=== PATIENT | male | born 1970 | race Caucasian/White ===

== ENCOUNTER 2020-02-12 10:17 | Emergency (ER) | payer OTHER ==
--- NOTE | 2020-02-12 10:43 | RADIOLOGY REPORT (SQ) ---
EXAM DESCRIPTION: CHEST SINGLE VIEW IMAGES COMPLETED DATE/TIME: 02/12/2020 10:32 am REASON FOR STUDY: chest pain COMPARISON: 04/24/2015 EXAM PARAMETERS: NUMBER OF VIEWS: One view. TECHNIQUE: Single frontal radiographic view of the chest acquired. RADIATION DOSE: NA LIMITATIONS: None. FINDINGS: LUNGS AND PLEURA: No opacities, masses or pneumothorax. No pleural effusion. MEDIASTINUM AND HILAR STRUCTURES: No masses. Contour normal. HEART AND VASCULAR STRUCTURES: Heart normal in size. Normal vasculature. BONES: No acute findings. HARDWARE: None in the chest. OTHER: No other significant finding. IMPRESSION: NO ACUTE RADIOGRAPHIC FINDING IN THE CHEST. TECHNICAL DOCUMENTATION: JOB ID: [id number] 2010 [employer]- All Rights Reserved Reading location - IP/workstation name: [email or web address]
[2020-02-12 10:45] LABS: ABSOLUTE BASOPHILS # (AUTO) 0.1 10^3/uL (0.0-0.2); ABSOLUTE EOSINOPHILS # (AUTO) 0.1 10^3/uL (0.0-0.6); ABSOLUTE LYMPHOCYTES (AUTO) 2.2 10^3/uL (0.5-4.7); ABSOLUTE MONOCYTES (AUTO) 0.4 10^3/uL (0.1-1.4); ABSOLUTE NEUT (AUTO) 5.1 10^3/uL (1.7-8.2); BASOPHILS % (AUTO) 0.9 % (0-2); EOSINOPHILS % (AUTO) 0.7 % (0-6); HEMOGLOBIN 15.7 g/dL (13.5-17.0); LYMPHOCYTES % (AUTO) 27.9 % (13-45); MEAN CORPUSCULAR HEMOGLOBIN 28.3 pg (27.0-33.4); MEAN CORPUSCULAR HGB CONC 34.9 g/dL (32.0-36.0); MEAN CORPUSCULAR VOLUME 81 fl (80-97); MONOCYTES % (AUTO) 5.4 % (3-13); PLATELET COUNT 232 10^3/uL (150-450); RED BLOOD COUNT 5.54 10^6/uL (4.35-5.55); RED CELL DISTRIBUTION WIDTH 13.5 % (11.5-14.0); SEGMENTED NEUTROPHILS % (AUTO) 65.1 % (42-78); TOTAL CELLS COUNTED % (AUTO) 100 %; WHITE BLOOD COUNT 7.8 10^3/uL (4.0-10.5)
[2020-02-12 11:06] LABS: ALBUMIN 4.5 g/dL (3.5-5.0); ALKALINE PHOSPHATASE 61 U/L (38-126); ANION GAP 9 (5-19); ASPARTATE AMINO TRANSFERASE 27 U/L (17-59); BILIRUBIN,TOTAL 0.7 mg/dL (0.2-1.3); BLOOD UREA NITROGEN 13 mg/dL (7-20); CALCIUM 9.3 mg/dL (8.4-10.2); CARBON DIOXIDE 26 mmol/L (22-30); CHLORIDE 104 mmol/L (98-107); GLUCOSE 85 mg/dL (75-110); POTASSIUM 4.1 mmol/L (3.6-5.0); TOTAL PROTEIN 7.5 g/dL (6.3-8.2)
[2020-02-12 12:39] VITALS: BP 124/83
--- NOTE | 2020-02-12 12:51 | ER Document Report ---
ED Cardiac - General Chief Complaint: Chest Pain Stated Complaint: CHEST PAIN Time Seen by Provider: 02/12/20 10:26 Information source: Patient TRAVEL OUTSIDE OF THE [place] IN LAST 30 DAYS: No - HPI Notes: Patient presents with chest pain. He states it is been substernal. Is been present since yesterday. It is been constant. He does have some shortness of breath with exertion. No significant sweating or nausea. No similar pain in the past. He denies any previous history of coronary artery disease. He is never had any type of coronary artery disease evaluation. He has had no recent cough cold or congestion. No known covert virus exposures. Patient denies any fevers. The pain is been worse with movement and better with rest. He states he does not have any significant pain if he sits still. The pain does radiate across the left side of his chest. It is moderate in intensity and an aching sensation. - Related Data Allergies/Adverse Reactions: No Known Allergies Allergy (Verified 07/08/13 14:40) Past Medical History - General Information source: Patient - Social History Smoking Status: Never Smoker Chew tobacco use (# tins/day): No Frequency of alcohol use: None Drug Abuse: None Family History: Reviewed & Not Pertinent Patient has homicidal ideation: No - Past Medical History Cardiac Medical History: Reports: Hx Hypertension Past Surgical History: Reports: Hx Orthopedic Surgery - bilateral knee surgery - Immunizations Hx Diphtheria, Pertussis, Tetanus Vaccination: Yes Review of Systems - Review of Systems Constitutional: denies: Chills, Fever Cardiovascular: Chest pain. denies: Palpitations Respiratory: Short of breath. denies: Cough -: Yes All other systems reviewed and negative Physical Exam - Vital signs Vitals: Pulse Ox 98 02/12/20 10:17 Interpretation: Normal - General General appearance: Appears well, Alert - HEENT Head: Normocephalic, Atraumatic Eyes: Normal Pupils: PERRL - Respiratory Respiratory status: No respiratory distress Chest status: Nontender Breath sounds: Normal Chest palpation: Normal - Cardiovascular Rhythm: Regular Heart sounds: Normal auscultation Murmur: No - Abdominal Inspection: Normal Distension: No distension Bowel sounds: Normal Tenderness: Nontender Organomegaly: No organomegaly - Back Back: Normal, Nontender - Extremities General upper extremity: Normal inspection, Nontender, Normal color, Normal ROM, Normal temperature General lower extremity: Normal inspection, Nontender, Normal color, Normal ROM, Normal temperature, Normal weight bearing. No: Mark's sign - Neurological Neuro grossly intact: Yes Cognition: Normal Orientation: AAOx4 John Coma Scale Eye Opening: Spontaneous John Coma Scale Verbal: Oriented [place] Coma Scale Motor: Obeys Commands [place] Coma Scale Total: 15 Speech: Normal Motor strength normal: LUE, RUE, LLE, RLE Sensory: Normal - Psychological Associated symptoms: Normal affect, Normal mood - Skin Skin Temperature: Warm Skin Moisture: Dry Skin Color: Normal Course - Vital Signs Vital signs: Temp Pulse Resp BP Pulse Ox 98.6 F 16 124/83 97 02/12/20 10:44 02/12/20 12:01 02/12/20 12:00 02/12/20 12:01 - Laboratory Result Diagrams: 02/12/20 10:19 02/12/20 10:19 - Diagnostic Test Radiology reviewed: Image reviewed, Reports reviewed - EKG Interpretation by Al EKG shows normal: Sinus rhythm Rate: Normal - 68 Rhythm: NSR [place]/QRS: No: Right axis deviation, Left axis deviation Discharge - Discharge Clinical Impression: Chest pain Qualifiers: Chest pain type: unspecified Qualified Code(s): R07.9 - Chest pain, unspecified Condition: Stable Disposition: HOME, SELF-CARE Instructions: Chest Pain of Unclear Cause ([facility]) Additional Instructions: Please call Dr. Nixon as soon as possible to arrange follow-up Forms: Return to Work Referrals: ADEN NIXON MD [ACTIVE STAFF] - Follow up in 3-5 days
--- NOTE | 2020-02-13 14:30 | EKG REPORT ---
SEVERITY:- NORMAL ECG - SINUS RHYTHM : Confirmed by: Miguel Angel Mcdonough MD 13-Feb-2020 14:29:24
== END 2020-02-12 12:00 | disposition home or self-care (01) ==
LOC: ER 10:17
DX: R07.9 Chest pain, unspecified (principal); I10 Essential (primary) hypertension
CPT/HCPCS: 36415; 71045; 80053; 84484; 85025; 93005; 93010; 99285

== ENCOUNTER 2020-05-24 17:57 | Emergency (ER) | payer OTHER ==
--- NOTE | 2020-05-24 18:25 | ER Document Report ---
ED Medical Screen (RME) - General Stated Complaint: ABCESS Time Seen by Provider: 05/24/20 18:17 Mode of Arrival: Ambulatory Information source: Patient Notes: HPI; 49-year-old male presents to the emergency room complaining of right-sided facial swelling for the past 5 days. States that he thought he may have gotten bitten by something. Is having increasing swelling, erythema, and had some drainage today. No history of previous abscesses. Has not taken any medications for symptoms. States tried using ice without relief. PE: Alert and oriented x3. Lungs: Clear to auscultation without rales, rhonchi, wheezes. Heart: Regular rate and rhythm without murmurs, rubs, gallops. He has a 4 x 4 centimeter raised fluctuant abscess to the right side of his face. It is warm and tender to palpation. Mild drainage is noted. I have greeted and performed a rapid initial assessment of this patient. A comprehensive ED assessment and evaluation of the patient, analysis of test results and completion of the medical decision making process will be conducted by additional ED providers. I have specifically instructed the patient or family members with the patient to immediately return to any nursing staff shou ld anything change in the patient's condition or with their chief complaint. TRAVEL OUTSIDE OF THE [place] IN LAST 30 DAYS: No - Related Data Allergies/Adverse Reactions: No Known Allergies Allergy (Verified 07/08/13 14:40) Past Medical History - Past Medical History Cardiac Medical History: Reports: Hx Hypertension Past Surgical History: Reports: Hx Orthopedic Surgery - bilateral knee surgery - Immunizations Hx Diphtheria, Pertussis, Tetanus Vaccination: Yes Physical Exam - Vital signs Vitals: Temp Pulse Resp BP Pulse Ox 98.0 F 56 L 16 139/83 H 97 05/24/20 18:03 05/24/20 18:03 05/24/20 18:03 05/24/20 18:03 05/24/20 18:03 Course - Vital Signs Vital signs: Temp Pulse Resp BP Pulse Ox 98.0 F 56 L 16 139/83 H 97 05/24/20 18:03 05/24/20 18:03 05/24/20 18:03 05/24/20 18:03 05/24/20 18:03
[2020-05-24 18:53] LABS: ABSOLUTE BASOPHILS # (AUTO) 0.1 10^3/uL (0.0-0.2); ABSOLUTE EOSINOPHILS # (AUTO) 0.3 10^3/uL (0.0-0.6); ABSOLUTE MONOCYTES (AUTO) 0.9 10^3/uL (0.1-1.4); ABSOLUTE NEUT (AUTO) 6.7 10^3/uL (1.7-8.2); BASOPHILS % (AUTO) 0.6 % (0-2); EOSINOPHILS % (AUTO) 2.8 % (0-6); HEMATOCRIT 45.8 % (37.9-51.0); HEMOGLOBIN 16.4 g/dL (13.5-17.0); LYMPHOCYTES % (AUTO) 20.3 % (13-45); MEAN CORPUSCULAR HGB CONC 35.7 g/dL (32.0-36.0); MEAN CORPUSCULAR VOLUME 84 fl (80-97); MONOCYTES % (AUTO) 8.7 % (3-13); PLATELET COUNT 213 10^3/uL (150-450); RED BLOOD COUNT 5.46 10^6/uL (4.35-5.55); SEGMENTED NEUTROPHILS % (AUTO) 67.6 % (42-78); TOTAL CELLS COUNTED % (AUTO) 100 %; WHITE BLOOD COUNT 9.9 10^3/uL (4.0-10.5)
[2020-05-24 19:11] LABS: ALBUMIN 4.5 g/dL (3.5-5.0); ALKALINE PHOSPHATASE 66 U/L (38-126); ANION GAP 10 (5-19); ASPARTATE AMINO TRANSFERASE 25 U/L (17-59); BILIRUBIN,DIRECT 0.3 mg/dL (0.0-0.4); BILIRUBIN,TOTAL 0.7 mg/dL (0.2-1.3); BLOOD UREA NITROGEN 8 mg/dL (7-20); CALCIUM 10.1 mg/dL (8.4-10.2); CARBON DIOXIDE 30 mmol/L (22-30); CHLORIDE 100 mmol/L (98-107); GLUCOSE 104 mg/dL (75-110); POTASSIUM 4.7 mmol/L (3.6-5.0); TOTAL PROTEIN 7.8 g/dL (6.3-8.2)
[2020-05-24] MEDS ORDERED: CLINDAMYCIN 600 MG/D5W RTU 600 MG/50 ML RTUPB IV ONE (20:59)
[2020-05-24] MEDS ORDERED: LIDOCAINE 1.5% INJ-MPF (15 MG/ML) 20 ML AMPUL INJ ONE (21:34)
[2020-05-24] MEDS ORDERED: LIDOCAINE 1% INJ (10 MG/ML) 10 ML MDV INJ ONE (21:44)
--- NOTE | 2020-05-24 21:54 | RADIOLOGY REPORT (SQ) ---
CT MAXILLOFACIAL WITH IV CONTRAST HISTORY: Facial pain and swelling. COMPARISON: None. TECHNIQUE: CT scan of the facial bones was performed without IV contrast. This exam was performed according to our departmental dose-optimization program, which includes automated exposure control, adjustment of the mA and/or kV according to patient size and/or use of iterative reconstruction technique. FINDINGS: There is inflammatory stranding overlying the right cheek with a focal rim-enhancing fluid collection in the subcutaneous tissues which measures approximately 3.7 x 2.6 x 1.5 cm. No foreign body is seen in this region. There is an additional 8 mm abscess in the soft tissues adjacent to the right lower jaw. No evidence of osteomyelitis. No acute facial bone fracture is seen. No air-fluid levels are seen in the paranasal sinuses. The mastoid air cells are clear. No retrobulbar mass or hematoma is identified. IMPRESSION: 1. 3.7 cm abscess in the right cheek soft tissues. 2. 8 mm abscess in the right lower jaw soft tissues.
--- NOTE | 2020-05-24 22:45 | ER Document Report ---
Entered by WILMER MCCLOUD SCRIBE 05/24/[id number] Acting as scribe for:RICHARD PERRY DO ED General - General Stated Complaint: ABCESS Time Seen by Provider: 05/24/20 18:17 Mode of Arrival: Ambulatory Information source: Patient Notes: This 49 year old male patient presents to the emergency department today with a abscess to his right cheek for the past x5 days. Patient denies history of absce sses. Patient states the abscess itches and denies pain. Patient reports history of HTN and denies history of DM. 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 TRAVEL OUTSIDE OF THE [place] IN LAST 30 DAYS: No - Related Data Allergies/Adverse Reactions: No Known Allergies Allergy (Verified 07/08/13 14:40) Past Medical History - General Information source: Patient - Social History Smoking Status: Unknown if Ever Smoked Family History: Reviewed & Not Pertinent, Malignancy - Past Medical History Cardiac Medical History: Reports: Hx Hypertension Endocrine Medical History: Denies: Hx Diabetes Mellitus Type 1, Hx Diabetes Mellitus Type 2 Past Surgical History: Reports: Hx Orthopedic Surgery - bilateral knee surgery - Immunizations Hx Diphtheria, Pertussis, Tetanus Vaccination: Yes Review of Systems - Review of Systems Constitutional: No symptoms reported EENT: No symptoms reported Cardiovascular: No symptoms reported Respiratory: No symptoms reported Gastrointestinal: No symptoms reported Genitourinary: No symptoms reported Male Genitourinary: See HPI Musculoskeletal: No symptoms reported Skin: See HPI, Other - Abscess R cheek Hematologic/Lymphatic: No symptoms reported Neurological/Psychological: No symptoms reported -: Yes All other systems reviewed and negative Physical Exam - Vital signs Vitals: Temp Pulse Resp BP Pulse Ox 98.0 F 56 L 16 139/83 H 97 05/24/20 18:03 05/24/20 18:03 05/24/20 18:03 05/24/20 18:03 05/24/20 18:03 - General General appearance: Appears well, Alert - HEENT Head: Normocephalic, Atraumatic Eyes: Normal Pupils: PERRL Notes: Neck: Tenderness with palpation to the right submandibular lymph nodes. Head: Silver dollar sized abscess inferior to the right eye and lateral to the cheek. Moderate soft tissue swelling. Erythema. No streaking. - Respiratory Respiratory status: No respiratory distress Chest status: Nontender Breath sounds: Normal Chest palpation: Normal - Cardiovascular Rhythm: Regular Heart sounds: Normal auscultation Murmur: No - Abdominal Inspection: Other - Soft Distension: No distension Bowel sounds: Normal Tenderness: Nontender Notes: Pustules present on the lower abdomen. - Genitourinary Notes: Soft tissue swelling above the right testicle. - Extremities General upper extremity: Normal inspection, Normal ROM General lower extremity: Normal inspection, Normal ROM. No: Edema - Neurological Neuro grossly intact: Yes Cognition: Normal Orientation: AAOx4 [place] Coma Scale Eye Opening: Spontaneous John Coma Scale Verbal: Oriented John Coma Scale Motor: Obeys Commands [place] Coma Scale Total: 15 Speech: Normal Motor strength normal: LUE, RUE, LLE, RLE Sensory: Normal - Psychological Associated symptoms: Normal affect, Normal mood - Skin Skin Temperature: Warm Skin Moisture: Dry Skin Color: Normal Skin irregularity: Abscess - R cheek Course - Re-evaluation Re-evalutation: 05/24/20 22:43 MDM 49 year old with what appears as MRSA right sided cheek abcess. I and d done and culture obtained. Also 15 years of right testicle swelling - "I have 3 nuts he tells me." Does not see a doctor. This right testicle swelling looks as hydrocoel. US ordered. - Vital Signs Vital signs: Temp Pulse Resp BP Pulse Ox 98.0 F 56 L 16 139/83 H 97 05/24/20 18:03 05/24/20 18:03 05/24/20 18:03 05/24/20 18:03 05/24/20 18:03 - Laboratory Result Diagrams: 05/24/20 18:32 05/24/20 18:32 - Diagnostic Test Radiology reviewed: Reports reviewed Procedures - Incision and Drainage Face Type: Complex Anesthetic type: 1% Lidocaine mL's of anesthetic: 5 Blade size: 11 I&D procedure: Betadine prep applied Incision Method: Incision made by scalpel Amount/type of drainage: 5 Notes: 05/24/20 22:41 Pt had right cheek abcess and after speaking with him and explaining procedure his abcess area was anesthitized with 5ml 1% lidocaine and then incised. Locuations broken with forceps and small amount of iodoform placed. Pt tolerated well without apparent complications. I discussed with him the importance of close follow up and he expressed understanding. Discharge - Discharge Clinical Impression: Abscess, Hydrocele in adult Condition: Stable Disposition: HOME, SELF-CARE Instructions: Abscess ([facility]), Family Physicians / Practices, MRSA Cellulitis ([facility]), Post Incision and Drainage, Trimethoprim-Sulfa ([facility]) Additional Instructions: Take the antibiotics as directed. Rest. Have the abcess rechecked here on 05/26 in the morning (7-8). Take tylenol or ibuprofen for pain. Please return here for increased pain or swelling or any other problems or concerns. Prescriptions: Sulfamethoxazole/Trimethoprim [Bactrim Ds Tablet] 2 each PO BID #40 tablet Forms: Return to Work I personally performed the services described in the documentation, reviewed and edited the documentation which was dictated to the scribe in my presence, and it accurately records my words and actions.
[2020-05-25] MEDS ORDERED: SULFAMETHOXAZOLE/TRIMETHOPRIM 800-160 MG TABLET PO ONE (00:05)
--- NOTE | 2020-05-25 00:30 | RADIOLOGY REPORT (SQ) ---
EXAM DESCRIPTION: [facility]Lex: US SCROTUM CLINICAL HISTORY: 49 years Male; right testicle swelling pain. ; TECHNIQUE: Gomez-scale, color, and spectral Doppler images were obtained of the testes and scrotum. COMPARISON: None FINDINGS: Right testicle: 5.2 x 2.2 x 3.7 cm. Testicular echogenicity is normal with no focal lesion. Testicular vascular flow is normal. Right epididymis: Normal, 1.2 x 0.6 x 0.4 cm. Large hydrocele. No hyperemia. Left testicle: 5.5 x 3.5 x 3.3 cm. Testicular echogenicity is normal with no focal lesion. Testicular vascular flow is normal. Left epididymis: Normal, 0.6 x 0.6 x 0.4 cm. 1.1 cm extratesticular cyst. Small hydrocele with some internal echoes. No hyperemia. IMPRESSION: 1. No testicular mass or torsion 2. Large right hydrocele and small left hydrocele
[2020-05-25 00:38] VITALS: BP 162/108
== END 2020-05-25 00:35 | disposition home or self-care (01) ==
LOC: ER 17:57
PROC: 0H91XZZ Drainage of Face Skin, External Approach (ICD-10-PCS; principal; 2020-05-24)
DX: L02.01 Cutaneous abscess of face (principal); N43.3 Hydrocele, unspecified; I10 Essential (primary) hypertension
CPT/HCPCS: 36415; 70487; 76870; 80053; 83605; 85025; 87040; 87070; 87075; 87077; 87186; 87205; 93976; 96365; 99285

== ENCOUNTER 2020-05-26 07:10 | Emergency (ER) | payer OTHER ==
[2020-05-26 07:24] VITALS: BP 142/95
--- NOTE | 2020-05-26 10:26 | ER Document Report ---
HPI - HPI Time Seen by Provider: 05/26/20 09:06 Pain Level: Denies Context: Patient is a 49-year-old male presents emergency department for a wound recheck to his right cheek. Patient denies any fevers, body aches, or chills. Patient states that there was packing placed, but thinks it might have come out. Denies any pain to the area. - ROS Systems Reviewed and Negative: Yes All other systems reviewed and negative - CONSTITUTIONAL Constitutional: DENIES: Fever, Chills - RESPIRATORY Respiratory: DENIES: Trouble Breathing, Coughing - GASTROINTESTINAL Gastrointestinal: DENIES: Abdominal Pain - MUSCULOSKELETAL Musculoskeletal: DENIES: Extremity pain - DERM Skin Color: Normal Notes: Abscess to right cheek Past Medical History - Social History Smoking Status: Never Smoker Chew tobacco use (# tins/day): No Drug Abuse: None Family History: Reviewed & Not Pertinent, Malignancy Patient has homicidal ideation: No - Past Medical History Cardiac Medical History: Reports: Hx Hypertension Endocrine Medical History: Denies: Hx Diabetes Mellitus Type 1, Hx Diabetes Mellitus Type 2 Past Surgical History: Reports: Hx Orthopedic Surgery - bilateral knee surgery - Immunizations Hx Diphtheria, Pertussis, Tetanus Vaccination: Yes Vertical Provider Document - CONSTITUTIONAL Agree With Documented VS: Yes Exam Limitations: No Limitations General Appearance: No Apparent Distress - INFECTION CONTROL TRAVEL OUTSIDE OF THE [place] IN LAST 30 DAYS: No - HEENT HEENT: Atraumatic, Normocephalic, PERRLA - NECK Neck: Normal Inspection - RESPIRATORY Respiratory: No Respiratory Distress - CARDIOVASCULAR Cardiovascular: Regular Rate, Regular Rhythm - MUSCULOSKELETAL/EXTREMETIES Musculoskeletal/Extremeties: FROM - NEURO Level of Consciousness: Awake, Alert, Appropriate Motor/Sensory: No Motor Deficit, No Sensory Deficit - DERM Integumentary: Abscess - Right cheek Course - Re-evaluation Re-evalutation: 05/26/20 10:26 Patient's abscess area was rechecked and there was still areas of purulent drainage. This was irrigated with Shur-Clens and saline. See procedure note. Patient tolerated procedure well. I will refer him to dermatology to have his abscess area rechecked. He agrees to follow-up with dermatology. I will also place him on Keflex. Follow-up precautions were given. Verbal discharge instructions were given to the patient. They verbalized understanding. They are stable for discharge. - Vital Signs Vital signs: Temp Pulse Resp BP Pulse Ox 98.1 F 68 16 142/95 H 97 05/26/20 07:21 05/26/20 07:21 05/26/20 07:21 05/26/20 07:21 05/26/20 07:21 Discharge - Discharge Clinical Impression: Abscess Condition: Stable Disposition: HOME, SELF-CARE Instructions: Abscess ([facility]), Cephalexin ([facility]) Additional Instructions: You were seen today in the emergency department to have your wound on your cheek rechecked. He still had a little bit of pus in the area. The wound was irrigated here in the emergency department. Follow-up with dermatology in [facility] to this visit. I prefer you see them tomorrow, or as soon as possible. You are also being placed on another antibiotic. Please continue to take your current antibiotic with the new antibiotic. Prescriptions: Cephalexin Monohydrate [Keflex 500 mg Capsule] 500 mg PO Q6H 7 Days #28 capsule Referrals: DALE VICTORIA DO [ACTIVE STAFF] - Follow up in 3-5 days
== END 2020-05-26 10:50 | disposition home or self-care (01) ==
LOC: ER 07:10
DX: L02.01 Cutaneous abscess of face (principal); I10 Essential (primary) hypertension
CPT/HCPCS: 99283